=== PATIENT | female | born 1970 | race American Indian/Alaskan Native ===

== ENCOUNTER 2017-10-10 15:35 | Emergency (ER) | payer MEDICAID ==
[2017-10-10] MEDS ORDERED: ZOFRAN IV ONE (16:14)
[2017-10-10] MEDS ORDERED: SUBLIMAZE ONE (16:18)
--- NOTE | 2017-10-10 16:21 | Emergency Department Report ---
ED General Adult HPI - General Chief complaint: Pain General Stated complaint: HIP PAIN Time Seen by Provider: 10/10/17 16:07 Source: patient Mode of arrival: Wheelchair Limitations: No Limitations - History of Present Illness Initial comments: Patient is 47 years old female with history of HIV and hypertension. Patient presented to the ER with severe left hip pain that started yesterday and gets worse today. Patient denied any history of trauma or fever. Patient stated that she is able to walk on it but not much. - Related Data Previous Rx's Medication Instructions Recorded Last Taken Type Azithromycin [Zithromax Z-OSMIN] 250 mg PO DAILY #6 tablet 08/27/13 Unknown Rx Fluconazole [Diflucan] 150 mg PO QDAY #3 tablet 08/27/13 Unknown Rx Sulfamethoxazole/Trimethoprim 1 each PO BID #20 tablet 08/20/14 Unknown Rx [Bactrim Ds] traMADol [Ultram 50 MG tab] 50 mg PO Q6HR PRN #20 tablet 08/20/14 Unknown Rx Allergies Allergy/AdvReac Type Severity Reaction Status Date / Time No Known Allergies Allergy Verified 08/26/13 23:20 ED Review of Systems ROS: Stated complaint: HIP PAIN Other details as noted in HPI Comment: All other systems reviewed and negative Constitutional: denies: chills, fever Respiratory: denies: cough, orthopnea, shortness of breath, SOB with exertion, SOB at rest, wheezing Cardiovascular: denies: chest pain, palpitations, dyspnea on exertion Gastrointestinal: denies: abdominal pain, nausea, vomiting, diarrhea, constipation, hematemesis, hematochezia Musculoskeletal: arthralgia. denies: back pain Neurological: denies: headache, weakness, numbness, paresthesias, confusion ED Past Medical Hx - Past Medical History Previous Medical History?: Yes Hx Diabetes: Yes Hx HIV: Yes Additional medical history: Hep C. TB (exposure) - Surgical History Past Surgical History?: No - Social History Smoking Status: Current Every Day Smoker Substance Use Type: Alcohol, Cocaine - Medications Home Medications: Home Medications Medication Instructions Recorded Confirmed Last Taken Type Azithromycin [Zithromax Z-OSMIN] 250 mg PO DAILY #6 tablet 08/27/13 Unknown Rx Fluconazole [Diflucan] 150 mg PO QDAY #3 tablet 08/27/13 Unknown Rx Sulfamethoxazole/Trimethoprim 1 each PO BID #20 tablet 08/20/14 Unknown Rx [Bactrim Ds] traMADol [Ultram 50 MG tab] 50 mg PO Q6HR PRN #20 tablet 08/20/14 Unknown Rx ED Physical Exam - General Limitations: No Limitations General appearance: alert, in distress (due to pain) - Head Head exam: Present: atraumatic, normocephalic, normal inspection - Eye Eye exam: Present: normal appearance, PERRL - ENT ENT exam: Present: normal exam, normal orophraynx, mucous membranes moist - Neck Neck exam: Present: normal inspection, full ROM. Absent: tenderness, meningismus, lymphadenopathy, thyromegaly - Respiratory Respiratory exam: Present: normal lung sounds bilaterally. Absent: respiratory distress, wheezes, rales, rhonchi, stridor, chest wall tenderness, accessory muscle use, decreased breath sounds, prolonged expiratory - Cardiovascular Cardiovascular Exam: Present: tachycardia - GI/Abdominal GI/Abdominal exam: Present: soft, normal bowel sounds. Absent: distended, tenderness, guarding, rebound, rigid, organomegaly, mass, bruit, pulsatile mass , hernia - Extremities Exam Extremities exam: Present: tenderness (left hip), normal capillary refill. Absent: pedal edema, calf tenderness - Neurological Exam Neurological exam: Present: alert, oriented X3, CN II-XII intact - Skin Skin exam: Present: warm, intact, normal color ED Course Vital Signs 10/10/17 15:44 Temperature 97.9 F Pulse Rate 106 H Respiratory 20 Rate Blood Pressure 155/67 O2 Sat by Pulse 99 Oximetry - Reevaluation(s) Reevaluation #1: 10/10/17 18:12 Patient stated that she is feeling much better. Her pain is almost completely resolved. Informed the patient about how her CT abdomen and pelvis results and the need to follow-up with her back doctor. Patient stated that she is being followed with an orthopedic doctor who advised for surgery but patient refused. ED Medical Decision Making - Lab Data Result diagrams: 10/10/17 16:23 10/10/17 16:23 Critical care attestation.: If time is entered above; I have spent that time in minutes in the direct care of this critically ill patient, excluding procedure time. ED Disposition Clinical Impression: Abdominal pain, Hip pain, left, Lumbar radiculopathy, acute, Constipation Disposition: - TO HOME OR SELFCARE Is pt being admited?: No Condition: Stable Instructions: Lumbar Radiculopathy (ED), Constipation (ED), High Fiber Diet (ED ) Referrals: PRIMARY CARE,MD [Primary Care Provider] - 3-5 Days
[2017-10-10] MEDS: SUBLIMAZE IV ONE ×2 (16:26→17:05)
[2017-10-10 16:41] LABS: Basophils % (Auto) 0.4 % (0.0-1.8); Eosinophils % (Auto) 0.1 % (0.0-4.3); Hematocrit 40.8 % (30.3-42.9); Hemoglobin 13.2 gm/dl (10.1-14.3); Lymphocytes # (Auto) 0.9 K/mm3 (1.2-5.4); Lymphocytes % (Auto) 20.7 % (13.4-35.0); Mean Corpuscular HGB Conc 32 % (30-34); Mean Corpuscular Hemoglobin 26 pg (28-32); Mean Corpuscular Volume 80 fl (79-97); Monocytes # (Auto) 0.2 K/mm3 (0.0-0.8); Monocytes % (Auto) 3.8 % (0.0-7.3); Platelet Count 149 K/mm3 (140-440); Red Blood Count 5.08 M/mm3 (3.65-5.03); Red Cell Distribution Width 13.9 % (13.2-15.2)
[2017-10-10] MEDS ORDERED: SUBLIMAZE IV ONE (17:00)
[2017-10-10 17:01] LABS: Alanine Aminotransferase 17 units/L (7-56); Albumin 3.6 g/dL (3.9-5); BUN/Creatinine Ratio 20; Blood Urea Nitrogen 16 mg/dL (7-17); Calcium 8.8 mg/dL (8.4-10.2); Hemolysis Index 6
--- NOTE | 2017-10-10 17:25 | Cat Scan Report ---
FINAL REPORT PROCEDURE: CT ABDOMEN PELVIS WO CON TECHNIQUE: Computerized axial tomography of the abdomen and pelvis was performed without intravenous contrast. This study is performed without intravascular contrast material and its sensitivity for abdominal and pelvic pathology, including neoplasms, inflammation, abscess, free fluid, thrombosis, arterial dissection and infarction, is reduced compared with a contrast enhanced study. HISTORY: ABDOMINAL PAIN COMPARISON: No prior studies are available for comparison. FINDINGS: Visualized lower thorax: No significant abnormality. Liver: Normal size and attenuation. Spleen: Normal size and attenuation. Gallbladder and biliary system: Normal. Pancreas: Normal. Adrenals: Normal. Kidneys: Normal. GI tract: There is a large volume of stool in the colon, compatible with constipation. No bowel obstruction or acute inflammation. Appendix is not fully visualized. Lymph nodes and mesentery: Normal. Vasculature: Normal. Bladder: Normal. Reproductive organs: Normal. Peritoneum: No free fluid. Musculoskeletal structures: There are facet arthritic changes at L4-5. There is 5 millimeters anterolisthesis at L4-5, which may be chronic. Degenerative disc changes are present at that level. Other: None. IMPRESSION: Findings suggest constipation. No acute inflammatory process is identified L4-5 anterolisthesis with facet arthritis and degenerative disc changes at that level as well.
[2017-10-10] MEDS ORDERED: HumuLIN R SUB-Q ONE (17:32)
[2017-10-10 18:34] LABS: Bilirubin,Urine NEG (Negative); Blood,Urine NEG (Negative); Color,Urine Yellow (Yellow); Urobilinogen,Urine < 2.0 mg/dL (<2.0); WBC,Urine < 1.0 /HPF (0.0-6.0)
[2017-10-10 18:50] VITALS: BP 166/78
== END 2017-10-10 18:58 | disposition home or self-care (01) ==
LOC: ED 15:35
DX: M54.16 Radiculopathy, lumbar region (principal); K59.00 Constipation, unspecified; R10.9 Unspecified abdominal pain; E11.9 Type 2 diabetes mellitus without complications; F17.200 Nicotine dependence, unspecified, uncomplicated; F12.10 Cannabis abuse, uncomplicated; F14.10 Cocaine abuse, uncomplicated; Z86.19 Personal history of other infectious and parasitic diseases; Z86.11 Personal history of tuberculosis
CPT/HCPCS: 36415; 74176; 80053; 81001; 84703; 85025; 85379; 86140; 96372; 96374; 96375; 99284; J2405; J3010; J1815